=== PATIENT | female | born 1975 | race Caucasian/White ===

== ENCOUNTER 2024-12-21 10:24 | Outpatient (REF) | payer SELFPAY | END 2024-12-21 10:25 | disposition home or self-care (01) | LOC: HO.MMNH2L 10:24 | PROVIDERS: Visit Provider Physician Assistant Medical | DX: Z13.89 Encounter for screening for other disorder (principal) ==

== ENCOUNTER 2025-02-13 08:18 | Outpatient (REF) | payer SELFPAY ==
[2025-02-13 08:21] LABS: MANUAL DIFF FLAG NO
[2025-02-13 08:56] LABS: Hematocrit 27.9 % (37.0-47.0); Hemoglobin 8.4 g/dl (12.0-16.0); Imm Gran Abs Auto 0.10 X10*3/uL (0.00-0.03); Imm Gran Pct Auto 0.7 % (0.0-0.4); Lymphocytes Absolute Auto 1.8 X10*3/uL (1.2-4.9); Mean Corpuscular HGB Conc 30.1 g/dl (31.0-35.0); Mean Corpuscular Hemoglobin 28.2 pg (27.0-33.0); Mean Corpuscular Volume 93.6 fL (80.0-98.0); NRBC Abs Auto 0.000 X10*3/uL (0.0-0.012); NRBC Pct Auto 0.0 /100WBC (0.0-0.2); Platelet Count 264 X10*3/uL (160-400); Red Blood Count 2.98 X10*6/uL (4.20-5.50); White Blood Count 14.8 X10*3/uL (4.8-10.8)
[2025-02-13 09:23] LABS: Alanine Aminotransferase < 6 U/L (0-31); Albumin Level 3.5 g/dL (3.5-5.0); Alkaline Phosphatase 201 U/L (39-117); Anion Gap 22 (12-20); Aspartate Amino Transferase 42 U/L (5-31); Blood Urea Nitrogen 59 mg/dL (9-16); Calcium 10.8 mg/dL (8.4-10.2); Carbon Dioxide 23 mmol/L (22-29); Chloride 90 mmol/L (96-108); Estimated Glomerular Filt Rate 7; Potassium 4.2 mmol/L (3.3-5.1); Sodium 131 mmol/L (135-145); Total Protein 7.4 g/dL (6.5-8.0)
== END 2025-02-13 08:19 | disposition home or self-care (01) ==
LOC: HO.MMNH2L 08:18
PROVIDERS: Visit Provider Physician Assistant Medical
DX: N13.6 Pyonephrosis (principal)
CPT/HCPCS: 36415; 80053; 83036; 85025